=== PATIENT | male | born 1970 | race Caucasian/White ===

== ENCOUNTER 2016-05-28 12:30 | Emergency (ER) | payer OTHER ==
--- NOTE | ~2016-05-28 | CR181 ---
[facility]. [facility] [place] A Service of [facility] RADIOLOGY TEXT RESULTS PATIENT: ROBERT PAN LOCATION: SED : 74 UNIT #: [id number] AGE: [address]: SHAHEEN RUGGIERO PA-C SEX: M ORDER DR: [id number] [place] [id number] MR#: [id number] Acc #: [id number] NAME: ROBERT PAN : 1970 SEX: M STUDY DATE/TIME: 05/28/2016 12:59 UNIT: SED ROOM: STUDY DESCRIPTION: CR Lumbar Spine 2 or 3 Views Attending Physician: Shaheen Ruggiero Pa-C Ordering Physician: Mj Hercules M.D. Primary Care Physician: Lefty Lowry M.D. MEDICAL IMAGING REPORT This report is preliminary unless electronic signature is present. EXAM Lumbar spine 05/28 INDICATIONS Low back pain radiating to the right leg for 1 week. No trauma. COMPARISON STUDIES 07/22/2013. FINDINGS 3 views of the lumbar spine were obtained. No fracture or subluxation is seen. Vertebral body heights and disc spaces are normal. Minimal degenerative endplate disease noted at L1-L2. IMPRESSION Minimal degenerative disease at L1-L2, otherwise negative lumbar spine. Dictated by... Stewart Colin Jr., M.D. THIS IS AN ELECTRONICALLY VERIFIED REPORT Stewart Colin Jr., M.D. at 05/28/2016 4:52 PM RLK/pcl TD: 05/28/2016 15:02 JOB #: [id number] MEDICAL IMAGING REPORT
[~2016-05-28 12:30] MED LIST: ALBUTEROL SULF8.5 G1 INH; ALBUTEROL17 GM INH; ANTIBIOTIC MED PO; ATARAX; DIAZEPAM PO; DICLOFENAC; DICLOFENAC PO; FLEXERIL; FLEXERIL PO; FLEXERIL10 M1; FLEXERIL10 M1 PO; FLEXERIL10 MG; FLEXERIL10 MG PO; HYDROCODON-ACE1 EAC7 PO; HYDROMET PO; IBUPROFEN PO; KLONOPIN1 MG PO; LORTAB 5/500 TA1 TA1 PO; LORTAB 7.5-5001 TAB PO; LYRICA PO; MEDROL DOSEPAK4 MG PO; MOBIC; MOBIC PO; MOTRIN600 M1 PO; NO MEDICATIONS; NORCO1 TAB 10/3 DOB; NORFLEX100 MG PO; PREDNISONE; PREDNISONE PO; PRILOSEC; PROZAC10 MG; ROBAXIN 750750 M1 DOB; ROBAXIN500 MG PO; STERAPRED DS; TRAZODONE; TYLENOL #3; TYLENOL #3 PO; VICODIN ES 7.51 EACH PO; WELLBUTRIN PO; XANAX1 MG PO; ZITHROMAX PO; ZOFRAN ODT4 MG/UDTAB PO; ZOVIRAX800 MG PO
[2016-05-29] MEDS ORDERED: PREDNISONE PO (09:13)
[2016-06-13] MEDS ORDERED: ACETAMINOPHEN PO (07:44)
== END 2016-05-28 14:04 | disposition home or self-care (01) ==
LOC: SED 12:30
DX: M54.16 Radiculopathy, lumbar region (principal); M51.36 Other intervertebral disc degeneration, lumbar region; F41.9 Anxiety disorder, unspecified; F32.9 Major depressive disorder, single episode, unspecified; F17.200 Nicotine dependence, unspecified, uncomplicated; Z79.899 Other long term (current) drug therapy
CPT/HCPCS: 72100; 96372; 99283; J1100; J2270

== ENCOUNTER 2016-05-29 10:16 | Emergency (ER) | payer OTHER ==
--- NOTE | ~2016-05-29 | CT98 ---
[facility] A Service of [facility] RADIOLOGY TEXT RESULTS PATIENT: ROBERT PAN LOCATION: SED : 74 UNIT #: [id number] AGE: [address]: Augustine Hubbard MD SEX: M ORDER DR: [id number] [place] [id number] E MR#: [id number] Acc #: [id number] NAME: ROBERT PAN : 1970 SEX: M STUDY DATE/TIME: 05/29/2016 11:03 UNIT: SED ROOM: STUDY DESCRIPTION: CT Lumbar Spine Wo Cont Attending Physician: Augustine Hubbard M.D. Ordering Physician: Augustine Hubbard M.D. Primary Care Physician: Lefty Lowry M.D. MEDICAL IMAGING REPORT This report is preliminary unless electronic signature is present. EXAM Lumbar spine CT HISTORY Low back pain for the past week that radiates into the right hip. TECHNIQUE Axial imaging was obtained from the lower thoracic spine to the sacrum and evaluated at bone and soft tissue windows with multiplanar reformats. This CT examination was performed with one or more of the following radiation dose reduction techniques: automatic exposure control, adjustment of mA and/or kV according to patient size, and iterative reconstruction. FINDINGS At the lower thoracic and upper lumbar levels, there are small anterior osteophytes. There is mild concentric disc bulging seen at L3-4 and L4-5 with mild central spinal stenosis as a result. At L5-S1, there is a right-sided disc herniation. The herniated fragment extends down below the L5-S1 disc level into the lateral recess of S1 and compressing the S1 root. It measures approximately 1 x 1 x 1.6 cm. No fractures or destructive bone lesions are seen. No pars defects are noted. No paraspinous masses are identified. IMPRESSION 1. Large right-sided disc herniation L5-S1 with S1 nerve root compression. 2. Mild central spinal stenosis L3-4 and L4-5 from concentric disc bulging. 3. Mild anterior degenerative disc disease T12-L1 and L1-L2. Dictated by... [facility] Service of [facility] RADIOLOGY TEXT RESULTS PATIENT: ROBERT PAN LOCATION: SED : 74 UNIT #: [id number] AGE: [address]: Augustine Hubbard MD SEX: M ORDER DR: Stewart Worley M.D. THIS IS AN ELECTRONICALLY VERIFIED REPORT Stewart Worley M.D. at 05/29/2016 3:27 PM ATTILA/román TD: 05/29/2016 14:15 JOB #: [id number] MEDICAL IMAGING REPORT
[2016-06-13] MEDS ORDERED: ACETAMINOPHEN PO (07:44)
== END 2016-05-29 11:54 | disposition home or self-care (01) ==
LOC: SED 10:16
DX: M51.27 Other intervertebral disc displacement, lumbosacral region (principal); F41.9 Anxiety disorder, unspecified; F32.9 Major depressive disorder, single episode, unspecified; F17.210 Nicotine dependence, cigarettes, uncomplicated
CPT/HCPCS: 72131; 99284; J1885

== ENCOUNTER 2016-06-13 07:53 | Emergency (ER) | payer OTHER ==
[~2016-06-13 07:53] MED LIST changes: +ACETAMINOPHEN PO
== END 2016-06-13 08:18 | disposition home or self-care (01) ==
LOC: SED 07:53
DX: M51.16 Intervertebral disc disorders with radiculopathy, lumbar region (principal); F17.200 Nicotine dependence, unspecified, uncomplicated; Z79.899 Other long term (current) drug therapy
CPT/HCPCS: 99283